=== PATIENT | male | born 1980 | race Caucasian/White ===

== ENCOUNTER 2018-06-12 09:27 | Emergency (ER) | payer SELFPAY ==
[~2018-06-12] VITALS: Ht 175.3 cm; Wt 75.0 kg
[2018-06-12] MEDS ORDERED: KETOROLAC 60MG/2ML VIAL IM STA (12:21)
[2018-06-12] MEDS ORDERED: CYCLOBENZAPRINE 10MG TABLET PO ONE (12:30)
[2018-06-12 13:21] VITALS: BP 117/58
== END 2018-06-12 13:23 | disposition home or self-care (01) ==
LOC: ER 09:27
DX: R07.89 Other chest pain (principal); M25.511 Pain in right shoulder
CPT/HCPCS: 71045; 96372; 99283; J1885